=== PATIENT | female | born 1990 | race Caucasian/White ===

== ENCOUNTER 2019-05-12 08:43 | Outpatient (CLI) | payer BC ==
--- NOTE | 2019-05-12 09:48 | RAD ---
Exam: 3 VIEWS OF SACROILIAC JOINTS: HISTORY: Acute pain. FINDINGS: Visualized sacral ala are intact. Visualized sacroiliac joints are patent and symmetric. Vi sualized bony pelvis is intact. IMPRESSION: Unremarkable exam. Transcribed Date/Time: 05/12/2019 10:00 AM
--- NOTE | 2019-05-12 09:53 | RAD ---
XR Lumbar Spine 2 Or 3 View: 05/12/2019 12:00 AM CLINICAL INDICATION: Acute low back pain COMPARISON: None. FINDINGS: Fracture:No fracture. Arthropathy:None of significance. Incidental findings:Prominent retained fecal material. Calcific density of right upper abdomen not fu rther localized. IMPRESSION: 1. No acute osseous abnormality.
== END 2019-05-12 08:44 | disposition home or self-care (01) ==
LOC: BICRAD 08:43
PROVIDERS: ATTEND Family Medicine
DX: M54.5 Low back pain (principal)
CPT/HCPCS: 72100; 72202